=== PATIENT | male | born 1955 | race Caucasian/White ===

== ENCOUNTER 2017-08-16 20:01 | Emergency (ER) | payer SELFPAY ==
[~2017-08-16] VITALS: Ht 177.8 cm; Wt 90.7 kg
--- NOTE | 2017-08-16 20:15 | ED EENT ---
History of Present Illness General Stated Complaint: FLU SYMPTOMS Source: patient Exam Limitations: no limitations History of Present Illness Time seen by provider: 20:06 Initial Comments Patient resists ER by private conveyance with a chief complaint of about 4:00 this afternoon he started having some body aches, sore throat, nasal and chest congestion and a dry cough. He does not smoke, drink or use drugs. His was diagnosed with influenza today. He was offered a prophylactic dose of Tamiflu and declined at that time. He has taken Tylenol about 30-40 minutes ago. He is not having any nausea. He's felt chills but no objective fever. Allergies and Home Medications Allergies Coded Allergies: No Known Drug Allergies (Unverified , 08/16/17) Home Medications No Active Prescriptions or Reported Meds Review of Systems Constitutional: chills, No fever, malaise Eyes: Denies Blindness, Denies Blurred Vision, Denies Drainage, Denies Pain, Denies Photophobia Ears: Denies Dizziness, Denies Pain Nose: denies clots, congestion Mouth: denies clots, denies pain Throat: pain, denies swelling, denies discharge Respiratory: cough, No phlegm, No short of breath, No wheezing Cardiovascular: chest pain (when he coughs or has deep inspiration), No palpitations, No syncope Past Wrdcraa-Gnvwps-Ljnqtd Hx Patient Social History Alcohol Use: Denies Use Recreational Drug Use: No Smoking Status: Never a Smoker Recent Foreign Travel: No Contact w/Someone Who Travel: No Physical Exam Vital Signs Vital Sign - Last 12Hours General Appearance: WD/WN, mild distress Eyes: bilateral eye normal inspection, bilateral eye PERRL, bilateral eye EOMI Ears: bilateral ear auricle normal, bilateral ear canal normal, bilateral ear TM normal Nose: normal inspection, No active bleeding, No discharge Mouth/Throat: No foreign body, other (pharyngeal erythema) Neck: non-tender, full range of motion, supple, normal inspection, No lymphadenopathy (R), No lymphadenopathy (L) Cardiovascular: normal peripheral pulses, no edema, no murmur, tachycardia Respiratory: chest non-tender, lungs clear, normal breath sounds, no respiratory distress, no accessory muscle use Neurologic/Psychiatric: alert, normal mood/affect, oriented x 3 Skin: normal color, warm/dry Progress/Results/Core Measures Results/Orders Lab Results Laboratory Tests Test 08/16/17 20:11 Range/Units Group A Streptococcus Screen NEGATIVE NEGATIVE My Orders Orders - LISSY SINGH Rapid Strep A Screen (08/16/17 20:10) Influenza A And B Antigens (08/16/17 20:10) Vital Signs/I&O Vital Sign - Last 12Hours 08/16/17 08/16/17 20:05 20:05 Temp 100.9 Pulse 109 Resp 18 B/P (MAP) 134/89 (104) Pulse Ox 97 O2 Delivery Room Air Room Air Departure Impression Impression: Primary Impression: Influenza Disposition: HOME, SELF-CARE Condition: Stable Departure-Patient Inst. Decision time for Depature: 20:37 Referrals: SARIAH WIN MD (PCP) Primary Care Physician Add. Discharge Instructions: Drink plenty of fluids; use Vicks or Mentholatum vapor rubs and a humidifier. Use hand precision layout worker or soap and water to prevent the spread of disease. Tylenol 1000 mg every 8 hours and/or ibuprofen 800 mg every 8 hours or 2 Aleve twice a day or useful as needed for pain. Scripts Oseltamivir Phosphate (Oseltamivir Phosphate) 75 Mg Capsule 75 MG PO BID for 5 Days, #10 CAP 0 Refills Prov: LISSY SINGH 08/16/17 Work/School Note: Work Release Form Date Seen in the Emergency Department: Aug 16, 2017 Return to Work: Aug 21, 2017 Restrictions: No Restrictions Copy Copies To 1: SARIAH WIN MD, TITUS J Aug 16, 2017 20:15
[2017-08-16] MEDS ORDERED: OSEL75CA15 PO (20:39)
[2017-08-16 20:43] VITALS: BP 134/89
== END 2017-08-16 20:41 | disposition home or self-care (01) ==
LOC: EDUNIT# 20:01 → ER 20:02
DX: J11.1 Influenza due to unidentified influenza virus with other respiratory manifestations (principal)
CPT/HCPCS: 87430; 87804; 99282